=== PATIENT | female | born 1995 | race African-American/Black ===

== ENCOUNTER 2017-05-12 11:03 | Emergency (ER) | payer BC, OTHER ==
--- NOTE | 2017-05-12 11:50 | ER Document Report ---
HPI - HPI Pain Level: 4 Notes: Patient is a 21-year-old female presents the ED complaining of left knee pain 2 weeks. Patient states that she was at a park walking around when her knee gave out on her, and she has had pain since then. Patient states that she has difficulty with weightbearing because of the pain. Flexion of her knee also increases her pain. The pain does not radiate. It is described as a sharp pain , and occasionally locks up on her. The pain is primarily to the sides of her knee. She has not noticed any swelling, redness, abscess, bruising. Patient denies any drug allergies. Patient does take oral control, but no other significant past medical history. Patient admits to smoking but denies any other illicit drug use. Her PCM is [facility] of [facility]. Denies any fever, headache, URI, sore throat, chest pain, palpitations, syncope , cough, wheeze, shortness of breath, abdominal pain, nausea/vomiting/diarrhea, dysuria, hematuria, muscle weakness/paralysis, or rash. - ROS Notes: REVIEW OF SYSTEMS: CONSTITUTIONAL : Denies fever, chills, or sweats. Denies recent illness. EENT: Denies eye, ear, throat, or mouth pain or symptoms. Denies nasal or sinus congestion or discharge. Denies throat, tongue, or mouth swelling or difficulty swallowing. CARDIOVASCULAR: Denies chest pain. Denies palpitations or racing or irregular heart beat. Denies ankle edema. RESPIRATORY: Denies cough, cold, or chest congestion. Denies shortness of breath, difficulty breathing, or wheezing. GASTROINTESTINAL: Denies abdominal pain or distention. Denies nausea, vomiting , or diarrhea. Denies blood in vomitus, stools, or per rectum. Denies black, tarry stools. Denies constipation. GENITOURINARY: Denies difficulty urinating, painful urination, burning, frequency, blood in urine, or discharge. MUSCULOSKELETAL: see hpi SKIN: Denies rash, lesions or sores. NEUROLOGICAL: Denies confusion or altered mental status. Denies passing out or loss of consciousness. Denies dizziness or lightheadedness. Denies headache. Denies weakness or paralysis or loss of use of either side. Denies problems with gait or speech. Denies sensory loss, numbness, or tingling. ALL OTHER SYSTEMS REVIEWED AND NEGATIVE. Dictation was performed using [employer] voice recognition software - CARDIOVASCULAR Cardiovascular: DENIES: Chest pain - DERM Skin Color: Normal Past Medical History - Social History Smoking Status: Current Every Day Smoker Chew tobacco use (# tins/day): No Frequency of alcohol use: None Drug Abuse: None Family History: Reviewed & Not Pertinent Renal/ Medical History: Denies: Hx Peritoneal Dialysis Surgical Hx: Negative Vertical Provider Document - CONSTITUTIONAL Agree With Documented VS: Yes Notes: PHYSICAL EXAMINATION: GENERAL: Well-appearing, well-nourished and in no acute distress. NECK: Normal range of motion, supple without lymphadenopathy LUNGS: Breath sounds clear to auscultation bilaterally and equal. No wheezes rales or rhonchi. HEART: Regular rate and rhythm without murmurs, rubs, gallops. Musculoskeletal: Lt knee: FROM to passive/active. Strength 5+/5. patellar grind neg. Ligamentous stable. Fahad neg. + tenderness to joint lines b/l and mild to the soft tissue b/l. No effusion, erythema, inflammation, abrasion , laceration, or obvious deformity noted. N/V intact to knee and distal. Feroz neg b/l. Extremities: No cyanosis, clubbing, or edema b/l. Peripheral pulses 2+. Capillary refill less than 3 seconds. NEUROLOGICAL: Limps, favors left knee. Normal sensory, motor exams PSYCH: Normal mood, normal affect. SKIN: Warm, Dry, normal turgor, no rashes or lesions noted. - INFECTION CONTROL TRAVEL OUTSIDE OF THE [place] IN LAST 30 DAYS: No - RESPIRATORY O2 Sat by Pulse Oximetry: 100 Course - Re-evaluation Re-evalutation: 05/12/17 12:39 Patient is an afebrile, well-hydrated, 21-year-old female presents the ED with acute left knee pain, NOS. Vitals are stable. PE otherwise unremarkable. X- ray unremarkable for any acute fracture dislocation. Crutches provided today for patient to use as needed. Conservative measures otherwise for symptoms. Recheck with her PCM in 2-3 days for further evaluation and management. Consider consult orthopedics and physical therapy. Return to ED with any worsening/concerning symptoms otherwise reviewed discharge. Patient is in agreement. 05/12/17 12:44 Pt declined crutches, has some at home - Vital Signs Vital signs: Temp Pulse Resp BP Pulse Ox 97.9 F 70 16 101/72 100 05/12/17 11:06 05/12/17 11:06 05/12/17 11:06 05/12/17 11:06 05/12/17 11:06 Discharge - Discharge Clinical Impression: Left knee pain Qualifiers: Chronicity: acute Qualified Code(s): M25.562 - Pain in left knee Condition: Stable Disposition: HOME, SELF-CARE Instructions: Ice & Elevation ([facility]), Use of Crutches ([facility]), Sprained Knee ([facility]) Additional Instructions: Rest, Ice, Compression, Elevation Use crutches as directed Tylenol/ibuprofen as needed Light stretches daily Strength exercises as able Moist heat and massage may help F/u with your PCP in 2-3 days for a recheck Consider consult(s) with Orthopedics/physical therapy for ongoing/worsening symptoms Return to the ED with any worsening symptoms and/or development of fever, headache, chest pain, palpitations, syncope, shortness of breath, trouble breathing, abdominal pain, n/v/d, muscle weakness/paralysis, numbness/tingling, redness, abscess, calf pain, or other worsening symptoms that are concerning to you. Prescriptions: Diclofenac Sodium [Voltaren] 4 gm TP QID PRN #100 gel..gm. PRN Reason: Meloxicam 7.5 mg PO BID PRN #20 tablet PRN Reason: Forms: Smoking Cessation Education Referrals: [facility] [Provider Group] - Follow up as needed [facility] [Provider Group] - Follow up as needed [facility] [Provider Group] - Follow up as needed [facility] [Provider Group] - Follow up as needed
--- NOTE | 2017-05-12 12:15 | RADIOLOGY REPORT (SQ) ---
EXAM DESCRIPTION: KNEE LEFT 4 VIEW COMPLETED DATE/TIME: 05/12/2017 11:59 am REASON FOR STUDY: left knee pain COMPARISON: None. NUMBER OF VIEWS: Four views. TECHNIQUE: AP, lateral, and both oblique radiographic images acquired of the left knee. LIMITATIONS: None. FINDINGS: MINERALIZATION: Normal. BONES: No acute fracture or dislocation. No worrisome bone lesions. JOINT: No effusion. SOFT TISSUES: No soft tissue swelling. No radio-opaque foreign body. OTHER: No other significant finding. IMPRESSION: NEGATIVE STUDY OF THE LEFT KNEE. NO RADIOGRAPHIC EVIDENCE OF ACUTE INJURY. TECHNICAL DOCUMENTATION: JOB ID: [id number] [employer]- All Rights Reserved
[2017-05-12 12:58] VITALS: BP 102/71
== END 2017-05-12 12:57 | disposition home or self-care (01) ==
LOC: ER 11:03
DX: M25.562 Pain in left knee (principal); F17.200 Nicotine dependence, unspecified, uncomplicated; Z79.3 Long term (current) use of hormonal contraceptives
CPT/HCPCS: 99283

== ENCOUNTER 2017-08-11 08:56 | Emergency (ER) | payer BC, OTHER ==
[2017-08-11] MEDS ORDERED: AZITHROMYCIN 250 MG TABLET PO ONE (09:39)
[2017-08-11] MEDS ORDERED: CEFTRIAXONE INJ 250 MG VIAL IM ONE (09:39)
[2017-08-11] MEDS ORDERED: LIDOCAINE 1% INJ-PF (10 MG/ML) 30 ML SDV INFIL ONE (09:39)
[2017-08-11] MEDS ORDERED: NAPROXEN 250 MG TABLET PO ONE (09:40)
[2017-08-11 10:09] LABS: ABSOLUTE EOSINOPHILS # (AUTO) 0.2 10^3/uL (0.0-0.6); ABSOLUTE LYMPHOCYTES (AUTO) 1.2 10^3/uL (0.5-4.7); ABSOLUTE MONOCYTES (AUTO) 0.4 10^3/uL (0.1-1.4); ABSOLUTE NEUT (AUTO) 2.9 10^3/uL (1.7-8.2); BASOPHILS % (AUTO) 0.7 % (0-2); EOSINOPHILS % (AUTO) 4.6 % (0-6); HEMATOCRIT 38.8 % (36.0-47.0); HGB HCT DIFFERENCE 0.2; LYMPHOCYTES % (AUTO) 25.8 % (13-45); MEAN CORPUSCULAR HEMOGLOBIN 29.5 pg (27.0-33.4); MEAN CORPUSCULAR HGB CONC 33.5 g/dL (32.0-36.0); MEAN CORPUSCULAR VOLUME 88 fl (80-97); MONOCYTES % (AUTO) 7.6 % (3-13); RED CELL DISTRIBUTION WIDTH 13.9 % (11.5-14.0); SEGMENTED NEUTROPHILS % (AUTO) 61.3 % (42-78); WHITE BLOOD COUNT 4.7 10^3/uL (4.0-10.5)
--- NOTE | 2017-08-11 10:11 | ER Document Report ---
ED General - General Chief Complaint: Pelvic Pain Stated Complaint: ABDOMINAL PAIN Time Seen by Provider: 08/11/17 09:07 Mode of Arrival: Ambulatory Information source: Patient Notes: 22-year-old female presents with complaints of bilateral lower quadrant abdominal pain associated with vaginal bleeding and fishy smell. Patient admits to order and discharge. She denies any fevers or chills TRAVEL OUTSIDE OF THE [place] IN LAST 30 DAYS: No - HPI Onset: Last week Onset/Duration: Intermittent Quality of pain: Cramping Severity: Mild Pain Level: 1 Associated symptoms: Other Exacerbated by: Denies Relieved by: Denies Similar symptoms previously: No Recently seen / treated by doctor: No - Related Data Allergies/Adverse Reactions: carrot Allergy (Verified 08/11/17 11:13) Home Medications: Current Home Medications No Home Medications 08/11/17 [History] Past Medical History - Social History Smoking Status: Current Every Day Smoker Cigarette use (# per day): Yes Chew tobacco use (# tins/day): No Smoking Education Provided: No Frequency of alcohol use: Occasional Drug Abuse: None Family History: Reviewed & Not Pertinent Renal/ Medical History: Denies: Hx Peritoneal Dialysis Review of Systems - Review of Systems Notes: REVIEW OF SYSTEMS: CONSTITUTIONAL : Denies fever, chills, or sweats. Denies recent illness. EENT: Denies eye, ear, throat, or mouth pain or symptoms. Denies nasal or sinus congestion or discharge. Denies throat, tongue, or mouth swelling or difficulty swallowing. CARDIOVASCULAR: Denies chest pain. Denies palpitations or racing or irregular heart beat. Denies ankle edema. RESPIRATORY: Denies cough, cold, or chest congestion. Denies shortness of breath, difficulty breathing, or wheezing. GASTROINTESTINAL: Denies abdominal pain or distention. Denies nausea, vomiting , or diarrhea. Denies blood in vomitus, stools, or per rectum. Denies black, tarry stools. Denies constipation. GENITOURINARY: Denies difficulty urinating, painful urination, burning, frequency, blood in urine, or discharge. FEMALE GENITOURINARY: Admits to vaginal bleeding admits to foul smell MUSCULOSKELETAL: Denies back or neck pain or stiffness. Denies joint pain or swelling. SKIN: Denies rash, lesions or sores. HEMATOLOGIC : Denies easy bruising or bleeding. LYMPHATIC: Denies swollen, enlarged glands. NEUROLOGICAL: Denies confusion or altered mental status. Denies passing out or loss of consciousness. Denies dizziness or lightheadedness. Denies headache. Denies weakness or paralysis or loss of use of either side. Denies problems with gait or speech. Denies sensory loss, numbness, or tingling. Denies seizures. PSYCHIATRIC: Denies anxiety or stress. Denies depression, suicidal ideation, or homicidal ideation. ALL OTHER SYSTEMS REVIEWED AND NEGATIVE. PHYSICAL EXAMINATION: GENERAL: Well-appearing, well-nourished and in no acute distress. HEAD: Atraumatic, normocephalic. EYES: Pupils equal round and reactive to light, extraocular movements intact, conjunctiva are normal. ENT: Nares patent, oropharynx clear without exudates. Moist mucous membranes. NECK: Normal range of motion, supple without lymphadenopathy LUNGS: Breath sounds clear to auscultation bilaterally and equal. No wheezes rales or rhonchi. HEART: Regular rate and rhythm without murmurs ABDOMEN: Soft, nontender, nondistended abdomen. No guarding, no rebound. No masses appreciated. Female : Pelvic examination performed with nurse in the room notes that she smile dry blood no tenderness on palpation Musculoskeletal: Normal range of motion, no pitting or edema. No cyanosis. NEUROLOGICAL: Cranial nerves grossly intact. Normal speech, normal gait. Normal sensory, motor exams PSYCH: Normal mood, normal affect. SKIN: Warm, Dry, normal turgor, no rashes or lesions noted. Dictation was performed using [employer] voice recognition software Physical Exam - Vital signs Vitals: Temp Pulse Resp BP Pulse Ox 98.4 F 72 22 H 110/63 99 08/11/17 09:01 08/11/17 09:01 08/11/17 09:01 08/11/17 09:01 08/11/17 09:01 Course - Re-evaluation Re-evalutation: 08/11/17 11:07 On physical examination no active bleeding is noted, my concern is for wet prep noting bacterial vaginosis. Patient wishes to be treated for STDs and I will do so at this time 08/11/17 11:22 Lab work is consistent with possible bacterial vaginosis we will treat with 2 g of Flagyl at this time After performing a Medical Screening Examination, I estimate there is LOW risk for ACUTE APPENDICITIS, BOWEL OBSTRUCTION, ACUTE CHOLECYSTITIS, PERFORATED DIVERTICULITIS, INCARCERATED HERNIA, PANCREATITIS, PELVIC INFLAMMATORY DISEASE, PERFORATED ULCER, ECTOPIC , or TUBO-OVARIAN ABSCESS, thus I consider the discharge disposition reasonable. Also, there is no evidence or peritonitis , sepsis, or toxicity. I have reevaluated this patient multiple times and no significant life threatening changes are noted. The patient and I have discussed the diagnosis and risks, and we agree with discharging home with close follow-up with the understanding that symptoms and presentations can change. We also discussed returning to the Emergency Department immediately if new or worsening symptoms occur. We have discussed the symptoms which are most concerning (e.g., bloody stool, fever, changing or worsening pain, vomiting) that necessitate immediate return. - Vital Signs Vital signs: Temp Pulse Resp BP Pulse Ox 98.4 F 72 22 H 110/63 99 08/11/17 09:01 08/11/17 09:01 08/11/17 09:01 08/11/17 09:01 08/11/17 09:01 - Laboratory Result Diagrams: 08/11/17 09:53 08/11/17 09:53 Laboratory results interpreted by me: 08/11/17 08/11/17 09:46 09:53 Plt Count 131 L Urine Blood MODERATE H Urine Urobilinogen 4.0 H Discharge - Discharge Clinical Impression: Vagina bleeding, Bacterial vaginitis Condition: Stable Disposition: HOME, SELF-CARE Instructions: Vaginosis, Bacterial ([facility]), Vaginal Bleeding ([facility]) Referrals: DOMONIQUE BENITEZ MD [Primary Care Provider] - [facility] up tomorrow [facility] - Follow up tomorrow
[2017-08-11 10:32] LABS: ALANINE AMINOTRANSFERASE 27 U/L (9-52); ALBUMIN 4.4 g/dL (3.5-5.0); ALKALINE PHOSPHATASE 40 U/L (38-126); ANION GAP 10 (5-19); ASPARTATE AMINO TRANSFERASE 18 U/L (14-36); BILIRUBIN,DIRECT 0.3 mg/dL (0.0-0.4); BILIRUBIN,TOTAL 0.5 mg/dL (0.2-1.3); BLOOD UREA NITROGEN 17 mg/dL (7-20); CALCIUM 9.5 mg/dL (8.4-10.2); CARBON DIOXIDE 25 mmol/L (22-30); CHLORIDE 107 mmol/L (98-107); CREATININE RESULT 0.78 mg/dL (0.52-1.25); GLUCOSE 83 mg/dL (75-110); POTASSIUM 4.4 mmol/L (3.6-5.0); SODIUM 142.4 mmol/L (137-145); TOTAL PROTEIN 7.1 g/dL (6.3-8.2)
[2017-08-11 11:14] LABS: APPEARANCE,URINE SLIGHTLY-CLOUDY; BILIRUBIN,URINE NEGATIVE (NEGATIVE); GLUCOSE, URINE NEGATIVE (NEGATIVE); KETONES,URINE NEGATIVE (NEGATIVE); LEUKOCYTE ESTERASE,URINE NEGATIVE (NEGATIVE); NITRITE,URINE NEGATIVE (NEGATIVE); PROTEIN,URINE NEGATIVE (NEGATIVE); URINE SPECIFIC GRAVITY 1.027
[2017-08-11] MEDS ORDERED: METRONIDAZOLE 500 MG TABLET PO ONE (11:27)
[2017-08-11 11:39] LABS: CHLAM PCR NOT DETECTED (NOT DETECT)
[2017-08-11 11:41] VITALS: BP 116/71
== END 2017-08-11 11:42 | disposition home or self-care (01) ==
LOC: ER 08:56
DX: N76.0 Acute vaginitis (principal); B96.89 Other specified bacterial agents as the cause of diseases classified elsewhere; N93.9 Abnormal uterine and vaginal bleeding, unspecified; R10.2 Pelvic and perineal pain; R10.9 Unspecified abdominal pain; R10.31 Right lower quadrant pain; R10.32 Left lower quadrant pain; F17.210 Nicotine dependence, cigarettes, uncomplicated
CPT/HCPCS: 99284; 96372; 36415; 87210; 84703; 85025; 80053; 81001; 87491; 87591; J3490; J0696